=== PATIENT | female | born 1980 | race Caucasian/White ===

== ENCOUNTER → 2024-01-28 07:35 | Outpatient (REF) | payer BC, SELFPAY | LOC: WDC 07:35 | PROVIDERS: ATTENDING PHYSICIAN Nurse Practitioner Adult Health; FAMILY PHYSICIAN Internal Medicine | DX: Z12.31 Encounter for screening mammogram for malignant neoplasm of breast (principal) | CPT/HCPCS: 77063; 77067 ==